=== PATIENT | female | born 1990 | race Caucasian/White ===

== ENCOUNTER 2017-08-15 18:32 | Emergency (ER) | payer MEDICAID, OTHER ==
[2017-08-15 19:21] VITALS: BP 127/67
--- NOTE | 2017-08-15 19:43 | UC ---
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 - History of Current Complaint Chief Complaint: UCRespiratory Stated Complaint: SORE THROAT Time Seen by Provider: 08/15/17 19:28 Hx Obtained From: Patient Hx Last Menstrual Period: LAST WEEK Onset/Duration: Gradual Onset, Lasting Hours Severity: Moderate Pain Intensity: 5 Pain Scale Used: 0-10 Numeric - Epiglottits Risk Factors Epiglottis Risk Factors: Negative - Allergies/Home Medications Allergies/Adverse Reactions: Allergies Allergy/AdvReac Type Severity Reaction Status Date / Time No Known Allergies Allergy Verified 08/15/17 19:21 PMH/Surg Hx/FS Hx/Imm Hx Previously Healthy: Yes - Surgical History Surgical History: None - Family History Known Family History: Positive: Hypertension - Social History Alcohol Use: None Alcohol Amount: Substance Use Type: None Smoking Status (MU): Former Smoker Type: Cigarettes Amount Used/How Often: quit in 2014 Have You Smoked in the Last Year: Yes When Did the Patient Quit Smoking/Using Tobacco: 06/13/2017 - Immunization History Most Recent Influenza Vaccination: 03/23/15 Most Recent Tetanus Shot: 02/10/15 Most Recent Pneumonia Vaccination: none Review of Systems Constitutional: Fatigue Skin: Negative Eyes: Negative ENT: Sore Throat Respiratory: Negative Cardiovascular: Negative Gastrointestinal: Negative Genitourinary: Negative Motor: Negative Neurovascular: Negative Musculoskeletal: Myalgia Neurological: Headache Psychological: Negative Is Patient Immunocompromised?: No All Other Systems Reviewed And Are Negative: Yes Physical Exam Triage Information Reviewed: Yes Appearance: Well-Appearing, No Pain Distress, Well-Nourished Vital Signs: Initial Vital Signs Temp 99 F 08/15/17 19:13 Pulse 117 08/15/17 19:13 Resp 18 08/15/17 19:13 BP 127/67 08/15/17 19:13 Pulse Ox 100 08/15/17 19:13 Vital Signs Reviewed: Yes Eyes: Positive: Conjunctiva Clear ENT: Positive: Pharyngeal erythema, Tonsillar swelling, Tonsillar exudate, Uvula midline. Negative: Nasal congestion, Nasal drainage, Trismus, Muffled voice, Hoarse voice, Sinus tenderness Dental Exam: Normal Neck: Positive: Supple, Nontender, No Lymphadenopathy Respiratory: Positive: Lungs clear, Normal breath sounds, No respiratory distress Cardiovascular: Positive: RRR, No Murmur Abdomen Description: Positive: Soft Musculoskeletal: Positive: ROM Intact, No Edema Neurological: Positive: Alert Psychological Exam: Normal Skin Exam: Other - papules on face Diagnostics - Laboratory Diagnostic Studies Completed/Ordered: strep (+) Throat Pain/Nasal Course/Dx - Differential Dx/Diagnosis Provider Diagnoses: strep throat Discharge - Sign-Out/Discharge Documenting (check all that apply): Discharge/Admit/Transfer - Discharge Plan Condition: Stable Disposition: HOME Prescriptions: Cephalexin CAP* [Keflex CAP*] 500 mg PO BID #20 cap Patient Education Materials: Strep Throat (ED) Forms: *Work Release Referrals: Jesús Turner MD [Primary Care Provider] - If Needed Additional Instructions: rest tylenol or advil - Billing Disposition and Condition Condition: STABLE Disposition: HOME
== END 2017-08-15 19:44 | disposition home or self-care (01) ==
LOC: UCCORT 18:32
DX: J02.0 Streptococcal pharyngitis (principal); Z20.89 Contact with and (suspected) exposure to other communicable diseases; Z87.891 Personal history of nicotine dependence
CPT/HCPCS: 87651; 99212; G0463

== ENCOUNTER 2018-10-15 10:38 | Emergency (ER) | payer MEDICAID, OTHER ==
[2018-10-15 11:02] VITALS: BP 110/76
--- NOTE | 2018-10-15 11:30 | UC ---
Ear Complaint HPI - HPI Summary HPI Summary: ABOUT 1 WEEK OF PROGRESSIVELY WORSENING LEFT EAR PAIN. HEARING IS MUFFLED. YESTERDAY HAD SOME BLOODY DISCHARGE. DOES NOT USE Q-TIPS IN HER EARS. REPORTS SHE HAS BEEN SWIMMING A LOT RECENTLY IN POOLS. DENIES ANY COUGH, FEVER OR OTHER URI SYMPTOMS. - History of Current Complaint Chief Complaint: UCEar Stated Complaint: LT EAR PAIN Time Seen by Provider: 10/15/18 11:24 Hx Obtained From: Patient Hx Last Menstrual Period: 10/15/18 Onset/Duration: Gradual Onset, Lasting Days, Still Present Severity Initially: Moderate Severity Currently: Moderate Pain Intensity: 3 Pain Scale Used: 0-10 Numeric Aggravating Factors: Nothing Alleviating Factors: OTC Meds - IBUPROFEN Associated Signs/Symptoms: Positive: Discharge, Hearing Loss. Negative: URI Symptoms - Allergies/Home Medications Allergies/Adverse Reactions: Allergies Allergy/AdvReac Type Severity Reaction Status Date / Time No Known Allergies Allergy Verified 10/15/18 10:56 PMH/Surg Hx/FS Hx/Imm Hx Respiratory History: Asthma - Surgical History Surgical History: None - Family History Known Family History: Positive: Hypertension - Social History Alcohol Use: Occasionally Alcohol Amount: Substance Use Type: None Smoking Status (MU): Light Every Day Tobacco Smoker Type: Cigarettes Amount Used/How Often: 3-4 cigs/ day Have You Smoked in the Last Year: Yes When Did the Patient Quit Smoking/Using Tobacco: 06/13/2017 - Immunization History Most Recent Influenza Vaccination: 03/23/15 Most Recent Tetanus Shot: 02/10/15 Most Recent Pneumonia Vaccination: none Review of Systems All Other Systems Reviewed And Are Negative: Yes Constitutional: Positive: Negative ENT: Positive: Ear Ache Respiratory: Positive: Negative Cardiovascular: Positive: Negative Gastrointestinal: Positive: Negative Physical Exam Triage Information Reviewed: Yes Appearance: Well-Appearing, No Pain Distress, Well-Nourished Vital Signs: Initial Vital Signs Temp 97.3 F 10/15/18 10:57 Pulse 84 10/15/18 10:57 Resp 16 10/15/18 10:57 BP 110/76 10/15/18 10:57 Pulse Ox 98 10/15/18 10:57 Vital Signs Reviewed: Yes Eyes: Positive: Conjunctiva Clear ENT: Positive: Hearing grossly normal, Pharynx normal, Other - RIGHT TM NORMAL. LEFT TM DULL, ERYTHEMATOUS, RETRACTED. 1MM CIRCULAR ABNORMALITY INFERIOR ASPECT OF TM. NO DRAINAGE OR BLOOD IN EAC. Ear Complaint Course/Dx - Course Course Of Treatment: PATIENT WITH CLEAR LEFT OTITIS MEDIA BUT ALSO SOME SUGGESTION OF A SMALL PERFORATION IN THE INFERIOR ASPECT OF HER EARDRUM. GIVEN THIS FINDING ALONG WITH HER REPORT OF MUFFLED HEARING AND BLOODY DRAINAGE WILL GO AHEAD AND COVER WITH TOPICAL WELL ORAL ANTIBIOTICS. FOLLOW-UP WITH ENT IF NOT IMPROVING EXPECTED. - Differential Dx/Diagnosis Provider Diagnosis: Otitis media, left Discharge - Sign-Out/Discharge Documenting (check all that apply): Patient Departure All imaging exams completed and their final reports reviewed: No Studies - Discharge Plan Condition: Stable Disposition: HOME Prescriptions: Amoxicillin PO (*) [Amoxicillin 500 MG CAP*] 1,000 mg PO Q12H #40 cap Ofloxacin 0.3% (Ear Drop)* [Floxin 0.3% OTIC.MINISTERIO (Ear Drop)] 5 drop LEFT EAR BID #1 btl Patient Education Materials: Ear Infection (ED) Referrals: Jesús Turner MD [Primary Care Provider] - If Needed Additional Instructions: YOUR LEFT EAR IS INFECTED. TAKE THE ORAL ANTIBIOTICS TWICE DAILY FOR THE FULL 10 DAYS. THERE IS A SUGGESTION OF A SMALL PERFORATION AT THE INFERIOR ASPECT OF YOUR EARDRUM BUT THIS IS NOT ENTIRELY CLEAR. GIVEN YOUR BLOODY DRAINAGE WOULD GO AHEAD AND COVER WITH TOPICAL ANTIBIOTIC EARDROPS WELL. FOLLOW-UP WITH ENT IF YOUR SYMPTOMS DON'T FULLY RECOVER WITH THIS TREATMENT. OTC MEDS NEEDED FOR DISCOMFORT. [facility] [address] [facility] [phone] - Billing Disposition and Condition Condition: STABLE Disposition: Home
== END 2018-10-15 11:37 | disposition home or self-care (01) ==
LOC: UCEAST 10:38
DX: H66.92 Otitis media, unspecified, left ear (principal); J45.909 Unspecified asthma, uncomplicated; F17.210 Nicotine dependence, cigarettes, uncomplicated
CPT/HCPCS: 99212; G0463

== ENCOUNTER 2021-08-02 08:02 | Inpatient (IN) ==
[2021-08-02] MEDS ORDERED: Lactated Ringers 1000 ml BAG 1,000 ML IV ONE (09:19)
[2021-08-02] MEDS ORDERED: Buffered Lidocaine 1% SYRIN 1 ml INTRADERM ONE (09:19)
[2021-08-02] MEDS ORDERED: Penicillin G Potassium IV 5,000,000 UNITS in NS 0.9% 100 ml BAG 100 ML IVPB ONE (09:30)
[2021-08-02] MEDS ORDERED: Oxytocin in LR 20 UNITS/1,000 ML BAG IVPB SCH ×2 (10:00→23:45)
[2021-08-02] MEDS ORDERED: Lactated Ringers 1000 ml BAG 1,000 ML IV SCH ×2 (10:00→23:45)
[2021-08-02] MEDS ORDERED: Penicillin G Potassium IV 3,000,000 UNITS in NS 0.9% 100 ml BAG 100 ML IVPB SCH (10:00)
[2021-08-02 11:16] LABS: ABS Eosinophils 0.1 10^3/ul (0-0.6); ABS Lymphocytes 1.7 10^3/ul (1.0-4.8); ABS Monocytes 0.7 10^3/ul (0-0.8); Eosinophil % 1.1 %; Hematocrit 35 % (35-47); Hemoglobin 12.2 g/dL (12.0-16.0); Lymphocyte % 17.5 %; Mean Corpuscular HGB Conc 35 g/dL (31-36); Mean Corpuscular Hemoglobin 30 pg (27-31); Mean Corpuscular Volume 87 fL (80-97); Mean Platelet Volume 8.2 fL (7.4-10.4); Platelet Count 252 10^3/uL (150-450); Red Blood Count 4.07 10^6 /uL (3.70-4.87); Red Cell Distribution Width 13 % (10-15); White Blood Count 9.5 10^3/uL (3.5-10.8)
[2021-08-02 11:34] LABS: Urine Benzodiazepine Screen None Detected (None Detect); Urine Cannabinoids Screen None Detected (None Detect); Urine Opiates Screen None Detected (None Detect)
[2021-08-02] MEDS: Penicillin G Potassium IV 3,000,000 UNITS in NS 0.9% 100 ml BAG 100 ML IVPB SCH ×3 (15:24→23:56)
[2021-08-02] MEDS ORDERED: Witch Hazel PAD JAR TOPICAL PRN (23:05)
[2021-08-02] MEDS ORDERED: Dibucaine 1% OINT 28.35 GM TUBE PR PRN (23:05)
[2021-08-02] MEDS ORDERED: Lidocaine 1% VIAL 10 MG/ML VIAL ONE (23:46)
[2021-08-03 07:35] LABS: ABS Eosinophils 0.1 10^3/ul (0-0.6); ABS Lymphocytes 1.7 10^3/ul (1.0-4.8); ABS Neutrophils 10.4 10^3/ul (1.5-7.7); Eosinophil % 0.9 %; Hematocrit 33 % (35-47); Hemoglobin 11.3 g/dL (12.0-16.0); Lymphocyte % 12.8 %; Mean Corpuscular HGB Conc 34 g/dL (31-36); Mean Corpuscular Hemoglobin 30 pg (27-31); Mean Corpuscular Volume 87 fL (80-97); Mean Platelet Volume 8.5 fL (7.4-10.4); Platelet Count 234 10^3/uL (150-450); Red Blood Count 3.78 10^6 /uL (3.70-4.87); Red Cell Distribution Width 13 % (10-15); White Blood Count 13.2 10^3/uL (3.5-10.8)
[2021-08-04 07:34] VITALS: BP 120/68
[2021-08-04] MEDS ORDERED: Tetan/Diph/Pertus SYR(Tdap) 0.5 ML SYR(BOOSTRIX) use SYR contains LATEX IM ONE (09:00)
== END 2021-08-04 14:00 | disposition home or self-care (01) | DRG 560 ==
LOC: MCHOBOUT 08:02 → MCHOB 09:28
PROVIDERS: ADMIT Midwife; ATTEND Advanced Practice Midwife